=== PATIENT | female | born 2000 | race African-American/Black ===

== ENCOUNTER 2023-02-23 11:26 | Emergency (ER) | payer OTHER ==
[~2023-02-23] VITALS: Ht 182.9 cm; Wt 105.0 kg
[2023-02-23 12:28] LABS: Urine Bacteria NONE SEEN /hpf (None Seen); Urine Blood 3+ /uL (Negative); Urine Mucus FEW (None Seen); Urine WBC 2827 /hpf (0 - 5); Urine WBC Clumps PRESENT /hpf (None Seen)
[2023-02-23 13:27] LABS: Basophils # (auto) 0.1 10 ^3/uL (0-0.2); Basophils % (auto) 0.7 % (0.0-2.0); Eosinophils # (auto) 0.2 10 ^3/uL (0-0.8); Eosinophils % (auto) 2.2 % (0.0-7.0); Hematocrit 35.7 % (36.0-46.0); Hemoglobin 11.9 g/dL (12.2-16.2); Lymphocytes # (auto) 1.9 10 ^3/uL (0.4-5.4); Lymphocytes % (auto) 22.9 % (10.0-50.0); Mean Corpuscular Hemoglobin 27.9 pg (28.0-32.0); Mean Corpuscular Hgb Conc. 33.3 g/dL (32.0-36.0); Mean Corpuscular Volume 83.6 fL (80.0-100.0); Monocytes # (auto) 0.6 10 ^3/uL (0-1.3); Monocytes % (auto) 7.2 % (0.0-12.0); Neutrophils # (auto) 5.5 10 ^3/uL (1.6-8.6); Nucleated Red Blood Cells % 0.1 %; Red Blood Cells 4.27 10^6/uL (4.0-5.20); Red Cell Distribution Width 13.5 % (11.8-14.3); White Blood Cell 8.2 10^3/uL (4.4-10.8)
[2023-02-23 14:02] LABS: Salicylate < 1.7 mg/dL (2.8-20.0)
[2023-02-23 14:12] LABS: Albumin 3.3 g/dL (3.4-5.0); Calcium 9.2 mg/dL (8.5-10.1); Potassium 3.9 mmol/L (3.5-5.1)
[2023-02-23 14:14] LABS: Acetaminophen < 2.0 ug/mL (10-30)
[2023-02-23 14:16] LABS: BUN/Creatinine Ratio 13.2 (10.0-20.0); Bilirubin, Total 0.1 mg/dL (0.2-1.0); Total Protein 7.7 g/dL (6.4-8.2)
[2023-02-23] MEDS ORDERED: SULFAMETHOX W/TRIMETH(800/160MG) DS TAB PO ONE (22:00)
[2023-02-23] MEDS ORDERED: cefTRIAXone W LIDOCAINE 1 GM IM IM ONE (22:45)
[2023-02-25] MEDS ORDERED: OLANZapine 5 MG TAB PO ONE ×2 (11:45→22:00)
[2023-02-25] MEDS ORDERED: LORazepam 0.5 MG TAB PO ONE (11:45)
[2023-02-26] MEDS ORDERED: diphenhdrAMINE HCL 50 MG/1 ML VL IM ONE (14:45)
[2023-02-26] MEDS ORDERED: LORazepam 2MG/ML-1ML VIAL IM ONE ×2 (18:15→18:45)
[2023-02-26] MEDS ORDERED: LORazepam 2MG/ML-1ML VIAL ONE (18:53)
[2023-02-26] MEDS ORDERED: LORazepam 0.5 MG TAB PO ONE (21:30)
[2023-02-27] MEDS ORDERED: diphenhdrAMINE HCL 25 MG CAP PO ONE (08:15)
[2023-02-27 08:37] VITALS: BP 118/78
[2023-02-27] MEDS ORDERED: OLANZapine 5 MG TAB PO SCH (22:00)
== END 2023-02-27 14:13 | disposition left against medical advice (07) ==
LOC: ER 11:26 → EDBD 11:26 → ER 02-27 14:13
DX: R45.851 Suicidal ideations (principal); R44.0 Auditory hallucinations; N39.0 Urinary tract infection, site not specified; F15.90 Other stimulant use, unspecified, uncomplicated
CPT/HCPCS: 36415; 80053; 80320; 80329; 81001; 84702; 85025; 96372; 99285; J0696